=== PATIENT | male | born 1985 | race Caucasian/White ===

== ENCOUNTER 2018-11-11 19:17 | Inpatient (IN) | payer MEDICAID ==
[~2018-11-11] VITALS: Ht 180.3 cm; Wt 120.2 kg
[2018-11-11] MEDS ORDERED: CARV3 PO (19:24)
[2018-11-11] MEDS ORDERED: SPIR25 PO (19:24)
[2018-11-11] MEDS ORDERED: LISI-662 PO (19:24)
[2018-11-11] MEDS ORDERED: FURO40 PO (19:24)
[2018-11-11] MEDS ORDERED: APIX5TAB PO (19:24)
[2018-11-11 20:07] LABS: BASOPHILS % (AUTO) 1.2 % (0.0-2.0); EOSINOPHILS % (AUTO) 4.6 % (1.0-6.0); HEMATOCRIT 38.9 % (41-53); HEMOGLOBIN 13.4 g/dL (13.5-17.5); LYMPHOCYTES # (AUTO) 1.9 K/uL (1.0-4.8); LYMPHOCYTES % (AUTO) 25.3 % (22.0-44.0); MEAN CORPUSCULAR HEMOGLOBIN 30.5 pg (26.0-34.0); MEAN CORPUSCULAR HGB CONC 34.3 G/dL (31.0-37.0); MEAN CORPUSCULAR VOLUME 89 fL (80-100); MONOCYTES # (AUTO) 0.4 K/uL (0.1-1.0); MONOCYTES % (AUTO) 5.5 % (2.0-9.0); NEUTROPHILS # (AUTO) 4.8 K/uL (1.8-7.7); NEUTROPHILS % (AUTO) 63.4 % (40.0-70.0); PLATELET COUNT (AUTO) 254 K/uL (150-450); RED BLOOD CELL COUNT(AUTO) 4.38 MIL/uL (4.50-5.90); RED CELL DISTRIBUTION WIDTH 13.8 % (11.5-14.5)
[2018-11-11 20:18] LABS: CALCIUM, TOTAL 8.2 mg/dL (8.8-10.5); CREATININE 2.01 mg/dL (0.60-1.30); POTASSIUM 3.4 mmol/L (3.5-5.1)
[2018-11-11 20:21] LABS: INR 1.1 (0.9-1.1); PROTHROMBIN TIME 11.2 SEC (9.4-11.6)
[2018-11-11 20:24] LABS: ALBUMIN 3.4 g/dL (3.4-5.0); BILIRUBIN,TOTAL 0.5 mg/dL (0.1-1.0); TOTAL PROTEIN, SERUM 7.1 g/dL (6.4-8.2)
[2018-11-11 20:32] LABS: APPEARANCE,URINE CLEAR (CLEAR); BILIRUBIN,URINE NEGATIVE (NEGATIVE); GLUCOSE, URINE (UA) NEGATIVE (NEGATIVE); KETONES,URINE NEGATIVE (NEGATIVE); LEUKOCYTE ESTERASE ,URINE NEGATIVE (NEGATIVE); NITRATE,URINE NEGATIVE (NEGATIVE); OCCULT BLOOD,URINE NEGATIVE (NEGATIVE); PH,URINE 5.5 (5.0-8.0); PROTEIN,URINE POS 1+ (NEGATIVE)
[2018-11-11] MEDS ORDERED: ASPIRIN 325 MG TABLET PO ONE (20:45)
[2018-11-11] MEDS ORDERED: ATORVASTATIN CALCIUM 40 MG TABLET PO ONE (21:00)
[2018-11-11] MEDS ORDERED: FUROSEMIDE 40 MG/4 ML VIAL IVP ONE (21:00)
[2018-11-11 22:13] VITALS: BP 128/98
[2018-11-11] MEDS ORDERED: OxyCODONE HCL/ACETAMINOPHEN 5-325 MG TABLET PO PRN ×2 (22:30)
[2018-11-11] MEDS ORDERED: 0.9% SODIUM CHLORIDE 10 ML SYRINGE IVP PRN (22:30)
[2018-11-11] MEDS: DOCUSATE SODIUM 100 MG CAPSULE PO SCH (22:30)
[2018-11-11] MEDS ORDERED: ACETAMINOPHEN 325 MG TABLET PO PRN (22:30)
[2018-11-11] MEDS ORDERED: MAGNESIUM HYDROXIDE SUSPENSION 30 ML UDCUP PO PRN (22:30)
[2018-11-11] MEDS ORDERED: ONDANSETRON HCL 4 MG/2 ML VIAL IVP PRN (22:30)
[2018-11-11] MEDS: SPIRONOLACTONE 25 MG TABLET PO SCH (22:30)
[2018-11-11] MEDS ORDERED: POTASSIUM CHL 10 MEQ/WATER 50 ML IV PRN (23:15)
[2018-11-11] MEDS: POTASSIUM CHLORIDE 20 MEQ ER TABLET PO PRN (23:32)
[2018-11-11 23:57] VITALS: BP 132/97
[2018-11-12] MEDS ORDERED: HEPARIN SODIUM,PORCINE 5,000 UNITS/ML VIAL IVP ONE ×2 (03:00→19:15)
[2018-11-12] MEDS ORDERED: HEPARIN SODIUM 25000 UNITS/D5W 250 ML IV PRN ×2 (03:00→19:06)
[2018-11-12] MEDS ORDERED: HEPARIN SODIUM,PORCINE 5,000 UNITS/ML VIAL IVP PRN ×4 (03:00→19:15)
[2018-11-12 04:23] LABS: BASOPHILS % (AUTO) 1.2 % (0.0-2.0); HEMATOCRIT 39.7 % (41-53); HEMOGLOBIN 13.3 g/dL (13.5-17.5); LYMPHOCYTES # (AUTO) 2.7 K/uL (1.0-4.8); LYMPHOCYTES % (AUTO) 29.3 % (22.0-44.0); MEAN CORPUSCULAR HEMOGLOBIN 29.9 pg (26.0-34.0); MEAN CORPUSCULAR HGB CONC 33.6 G/dL (31.0-37.0); MEAN CORPUSCULAR VOLUME 89 fL (80-100); MONOCYTES # (AUTO) 0.7 K/uL (0.1-1.0); MONOCYTES % (AUTO) 7.8 % (2.0-9.0); NEUTROPHILS # (AUTO) 5.2 K/uL (1.8-7.7); NEUTROPHILS % (AUTO) 55.7 % (40.0-70.0); PLATELET COUNT (AUTO) 247 K/uL (150-450); RED BLOOD CELL COUNT(AUTO) 4.46 MIL/uL (4.50-5.90)
[2018-11-12 04:26] LABS: CALCIUM, TOTAL 8.2 mg/dL (8.8-10.5); CREATININE 1.59 mg/dL (0.60-1.30); POTASSIUM 3.4 mmol/L (3.5-5.1)
[2018-11-12 04:44] VITALS: BP 122/89
[2018-11-12] MEDS: POTASSIUM CHLORIDE 20 MEQ ER TABLET PO PRN (04:53)
[2018-11-12 07:27] VITALS: BP 128/95
[2018-11-12] MEDS: DOCUSATE SODIUM 100 MG CAPSULE PO SCH ×3 (08:12→20:41)
[2018-11-12] MEDS: CARVEDILOL 3.125 MG TABLET PO SCH (08:12)
[2018-11-12] MEDS: FUROSEMIDE 40 MG/4 ML VIAL IVP SCH (08:12)
[2018-11-12] MEDS: SPIRONOLACTONE 25 MG TABLET PO SCH ×2 (08:12→20:30)
[2018-11-12 08:17] LABS: AMPHET/METH SCREEN,URINE NEGATIVE (NEGATIVE); BARBITURATE SCREEN, URINE NEGATIVE (NEGATIVE); BENZODIAZEPINES SCREEN,URINE NEGATIVE (NEGATIVE); CANNABINOID SCREEN,URINE POSITIVE (NEGATIVE); COCAINE SCREEN,URINE NEGATIVE (NEGATIVE); METHADONE SCREEN, URINE NEGATIVE (NEGATIVE); OPIATE SCREEN,URINE NEGATIVE (NEGATIVE)
[2018-11-12 08:20] LABS: PHENCYCLIDINE SCREEN,URINE NEGATIVE (NEGATIVE)
[2018-11-12] MEDS ORDERED: POTASSIUM CHLORIDE 20 MEQ ER TABLET PO ONE (09:00)
[2018-11-12] MEDS ORDERED: APIXABAN 5 MG TABLET PO SCH (09:00)
[2018-11-12] MEDS ORDERED: FAMOTIDINE 10 MG/ML 2 ML VIAL IVP SCH (09:00)
[2018-11-12] MEDS: LOSARTAN POTASSIUM 25 MG TABLET PO SCH ×2 (09:25→20:30)
[2018-11-12 11:36] VITALS: BP 129/89
[2018-11-12 15:46] VITALS: BP 144/99
[2018-11-12 19:28] VITALS: BP 140/96
[2018-11-12 19:42] LABS: BASOPHILS % (AUTO) 0.9 % (0.0-2.0); EOSINOPHILS % (AUTO) 3.5 % (1.0-6.0); HEMATOCRIT 43.5 % (41-53); HEMOGLOBIN 14.6 g/dL (13.5-17.5); LYMPHOCYTES # (AUTO) 2.2 K/uL (1.0-4.8); LYMPHOCYTES % (AUTO) 19.5 % (22.0-44.0); MEAN CORPUSCULAR HEMOGLOBIN 30.1 pg (26.0-34.0); MEAN CORPUSCULAR HGB CONC 33.5 G/dL (31.0-37.0); MEAN CORPUSCULAR VOLUME 90 fL (80-100); MONOCYTES # (AUTO) 0.6 K/uL (0.1-1.0); MONOCYTES % (AUTO) 5.6 % (2.0-9.0); NEUTROPHILS # (AUTO) 7.9 K/uL (1.8-7.7); NEUTROPHILS % (AUTO) 70.5 % (40.0-70.0); PLATELET COUNT (AUTO) 282 K/uL (150-450); RED BLOOD CELL COUNT(AUTO) 4.84 MIL/uL (4.50-5.90); RED CELL DISTRIBUTION WIDTH 14.2 % (11.5-14.5)
[2018-11-12 19:54] LABS: INR 1.1 (0.9-1.1); PROTHROMBIN TIME 11.2 SEC (9.4-11.6)
[2018-11-12] MEDS ORDERED: CARV25TA32 PO (22:19)
[2018-11-12] MEDS ORDERED: POTA10CA44 PO (22:26)
[2018-11-12] MEDS ORDERED: LISI10TA7 PO (22:26)
[2018-11-12 23:13] VITALS: BP 155/99
[2018-11-13 03:21] VITALS: BP 147/99
[2018-11-13 05:26] LABS: BASOPHILS % (AUTO) 1.3 % (0.0-2.0); HEMOGLOBIN 14.1 g/dL (13.5-17.5); LYMPHOCYTES # (AUTO) 2.8 K/uL (1.0-4.8); LYMPHOCYTES % (AUTO) 26.6 % (22.0-44.0); MEAN CORPUSCULAR HEMOGLOBIN 30.2 pg (26.0-34.0); MEAN CORPUSCULAR HGB CONC 33.6 G/dL (31.0-37.0); MEAN CORPUSCULAR VOLUME 90 fL (80-100); MONOCYTES # (AUTO) 0.6 K/uL (0.1-1.0); MONOCYTES % (AUTO) 5.8 % (2.0-9.0); NEUTROPHILS # (AUTO) 6.4 K/uL (1.8-7.7); NEUTROPHILS % (AUTO) 61.3 % (40.0-70.0); PLATELET COUNT (AUTO) 249 K/uL (150-450); RED BLOOD CELL COUNT(AUTO) 4.68 MIL/uL (4.50-5.90); RED CELL DISTRIBUTION WIDTH 13.8 % (11.5-14.5)
[2018-11-13 05:46] LABS: ALBUMIN 3.5 g/dL (3.4-5.0); CALCIUM, TOTAL 8.6 mg/dL (8.8-10.5); CREATININE 1.43 mg/dL (0.60-1.30); MAGNESIUM 1.9 mg/dL (1.80-2.40); POTASSIUM 4.2 mmol/L (3.5-5.1); TOTAL PROTEIN, SERUM 7.5 g/dL (6.4-8.2)
[2018-11-13 07:09] VITALS: BP 139/106
[2018-11-13] MEDS: FUROSEMIDE 40 MG/4 ML VIAL IVP SCH (08:02)
[2018-11-13] MEDS: SPIRONOLACTONE 25 MG TABLET PO SCH ×2 (08:03→20:11)
[2018-11-13] MEDS: LOSARTAN POTASSIUM 25 MG TABLET PO SCH ×2 (08:03→20:12)
[2018-11-13] MEDS: CARVEDILOL 3.125 MG TABLET PO SCH (08:03)
[2018-11-13] MEDS: DOCUSATE SODIUM 100 MG CAPSULE PO SCH ×2 (08:15→20:11)
[2018-11-13] MEDS: APIXABAN 5 MG TABLET PO SCH ×2 (09:47→20:18)
[2018-11-13] MEDS: ATORVASTATIN CALCIUM 20 MG TABLET PO SCH (09:50)
[2018-11-13 11:18] VITALS: BP 144/101
[2018-11-13 15:51] VITALS: BP 157/102
[2018-11-13] MEDS ORDERED: CARVEDILOL 6.25 MG TABLET PO ONE (16:00)
[2018-11-13 20:01] VITALS: BP 138/93
[2018-11-13] MEDS: CARVEDILOL 6.25 MG TABLET PO SCH (20:12)
[2018-11-14] VITALS: BP 135/98
[2018-11-14 04:19] VITALS: BP 128/85
[2018-11-14 07:56] VITALS: BP 126/82
[2018-11-14] MEDS: DOCUSATE SODIUM 100 MG CAPSULE PO SCH (09:00)
[2018-11-14] MEDS: SPIRONOLACTONE 25 MG TABLET PO SCH (09:18)
[2018-11-14] MEDS: LOSARTAN POTASSIUM 25 MG TABLET PO SCH (09:18)
[2018-11-14] MEDS: CARVEDILOL 6.25 MG TABLET PO SCH (09:18)
[2018-11-14] MEDS: ATORVASTATIN CALCIUM 20 MG TABLET PO SCH (09:18)
[2018-11-14] MEDS: APIXABAN 5 MG TABLET PO SCH (09:18)
[2018-11-14] MEDS: FUROSEMIDE 40 MG/4 ML VIAL IVP SCH (09:19)
[2018-11-14 11:42] VITALS: BP 142/101
[2018-11-14] MEDS ORDERED: LOSA50TA64 PO (15:50)
[2018-11-14] MEDS ORDERED: CARVEDILOL 12.5 MG TABLET PO ONE ×3 (16:15→16:45)
[2018-11-14 16:27] VITALS: BP 139/106
[2018-11-14] MEDS ORDERED: LOSARTAN POTASSIUM 50 MG TABLET PO SCH (21:00)
[2018-11-14] MEDS ORDERED: CARVEDILOL 6.25 MG TABLET PO SCH (21:00)
== END 2018-11-14 17:07 | disposition home or self-care (01) | DRG 190 ==
LOC: EMS 19:18 → 5S 20:30
PROVIDERS: ADMIT Internal Medicine; ATTEND Internal Medicine
DX: I21.4 Non-ST elevation (NSTEMI) myocardial infarction (principal); I50.23 Acute on chronic systolic (congestive) heart failure; N17.9 Acute kidney failure, unspecified; I42.9 Cardiomyopathy, unspecified; E87.6 Hypokalemia; N18.9 Chronic kidney disease, unspecified; I13.0 Hypertensive heart and chronic kidney disease with heart failure and stage 1 through stage 4 chronic kidney disease, or unspecified chronic kidney disease; F12.90 Cannabis use, unspecified, uncomplicated; I48.0 Paroxysmal atrial fibrillation; Z79.01 Long term (current) use of anticoagulants; Z95.810 Presence of automatic (implantable) cardiac defibrillator; Z79.899 Other long term (current) drug therapy; Z87.891 Personal history of nicotine dependence
CPT/HCPCS: 76770; 82570; 83735; 84132; 84156; 93005; 93306; 99291; J1644; J1940; J3490